=== PATIENT | female | born 1940 | race Caucasian/White ===

== ENCOUNTER 2017-08-25 12:53 | Emergency (ER) | payer OTHER ==
[2017-08-25 13:03] VITALS: BMI 23.4
[2017-08-25] MEDS ORDERED: CATAPRES TAB 0.1 MG PO ONE (13:19)
[2017-08-25] MEDS ORDERED: CATAPRES TAB 0.1 MG ONE (13:19)
--- NOTE | 2017-08-25 13:25 | DR.GENAD ---
HPI - PCP Primary Care Physician: TOMAS - Complaint/Symptoms Chief Complaint Doctors Comments: She had a pre-syncopal episode at about 0945 hrs. today while in [place]. She denies preceeding palpitations or SOB, She had no chest pain but was diaphoretic. Her most recent visit with her embedded developer was under 2 weeks and and her Metoprolol was changed to Coreg. Chief Complaint:: PT WAS AT [employer] AT 945 THIS AM AND HAD A SYNCOPLE EPISODE. DECIDED TO COME TO THE ER TO GET SEEN - Nurses notes reviewed Nurses Notes Review: Yes - Source History Provided: Patient - Mode of Arrival Mode of Arrival: Ambulatory - Timing Onset of Chief Complaint: 08/25/17 PMH - PMH Past Medical History: Yes Past Medical History: Hypertension Past Medical History Comment: Hypothyroidism Past Surgical History: Yes Surgical History: Appendectomy, Ortho Surgery, Thyroidectomy, Tonsillectomy - Family History History of Family Medical Conditions: No - Social History Does patient currently use any type of tobacco product: No Have you used tobacco products in the last 12 months: No Type of Tobacco Use: None Does any household member use tobacco: No Alcohol Use: None Do you use any recreational Drugs:: No Lives With: Family Lives Where: Home - infectious screening In the last 2 months have you had wt loss of >10#?: NO Have you had fever, night sweats or hemotysis?: No Have you traveled outside the country in the last 6 months?: No Isolation: Standard ROS - Review of Systems Constitutional: No Symptoms Reported Eyes: No Symptoms Reported ENTM: No Symptoms Reported Respiratoy: No Symptoms Reported Cardiovascular: No Symptoms Reported Gastrointestinal/Abdominal: No Symptoms Reported Genitourinary: No Symptoms Reported Neurological: Other (near syncope this a.m.) Musculoskeletal: No Symptoms Reported Integumentary: No Symptoms Reported Hematologic/Lymphatic: No Symptoms Reported Endocrine: No Symptoms Reported Psychiatric: No Symptoms Reported All Other Systems: Reviewed and Negative PE - Vital Signs Vitals: Temperature 98.7 F Pulse Rate [Apical] 52 Pulse Rate 62 Respiratory Rate 13 Blood Pressure [Left Arm] 147/65 Blood Pressure 226/87 O2 Sat by Pulse Oximetry 98 - General Limitations: No Limitations General Appearance: Alert, In No Apparent Distress - Head Head Exam: Normal Inspection - Eyes Eye exam: Normal Appearance, PERRL, EOMI - ENT ENT Exam: Normal Exam - Neck Neck Exam: Normal Inspection, Full ROM, Trachea Midline - Chest Chest Inspection: Normal Inspection, Symmetric Chest Wall Rise - Respiratory Respiratory Exam: Normal Lung Sounds Bilat - Cardiovascular Cardiovascular Exam: Bradycardia - Abdominal Exam Abdominal Exam: Normal Inspection, Normal Bowel Sounds, Soft - Extremities Extremities Exam: Normal Inspection, Full ROM - Back Back Exam: Normal Inspection - Neurologic Neurological Exam: Alert, Oriented X3, CN II-XII Intact - Psychiatric Psychiatric Exam: Normal Affect - Skin Skin Exam: Warm, Dry, Intact, Normal Color ROR - Labs Reviewed Result Diagrams: 08/25/17 13:30 08/25/17 13:30 Laboratory: WBC 6.3 X10^3/uL (3.6-10.0) 08/25/17 13:30 RBC 3.70 X10^6/uL (3.5-5.4) 08/25/17 13:30 Hgb 11.9 g/dL (12.0-16.0) L 08/25/17 13:30 Hct 34.5 % (36.0-47.0) L 08/25/17 13:30 MCV 93.2 fL (80.0-100.0) 08/25/17 13:30 MCH 32.1 pg (27.0-34.0) 08/25/17 13:30 MCHC 34.5 g/dL (33.0-35.0) 08/25/17 13:30 RDW 13.5 % (11.6-16.5) 08/25/17 13:30 Plt Count 155 X10^3/uL (150.0-450.0) 08/25/17 13:30 MPV 9.1 fL (7.4-11.0) 08/25/17 13:30 Neut % 71.8 % (42.0-75.0) 08/25/17 13:30 Lymph % 17.1 % (21.0-51.0) L 08/25/17 13:30 [place] % 9.7 % (0.0-13.0) 08/25/17 13:30 Eos % 0.8 % (0.9-2.9) L 08/25/17 13:30 Baso % 0.6 % (0.2-1.0) 08/25/17 13:30 Neut # 4.5 x10^3/uL (2.2-4.8) 08/25/17 13:30 Lymph # 1.1 X10^3/uL (1.3-2.9) L 08/25/17 13:30 [place] # 0.6 x10^3/uL (0.3-0.8) 08/25/17 13:30 Eos # 0.1 x10^3/uL (0.0-0.2) 08/25/17 13:30 Baso # 0.0 X10^3/uL (0.0-0.1) 08/25/17 13:30 Absolute Nucleated RBC 0.0 /100WBC 08/25/17 13:30 Sodium 135 mmol/L (136-145) L 08/25/17 13:30 Corrected Sodium TNP 08/25/17 13:30 Potassium 4.9 mmol/L (3.5-5.1) 08/25/17 13:30 Chloride 102 mmol/L (98-107) 08/25/17 13:30 Carbon Dioxide 23.3 mmol/L (21-32) 08/25/17 13:30 BUN 28 mg/dL (7-18) H 08/25/17 13:30 Creatinine 0.85 mg/dL (0.55-1.02) 08/25/17 13:30 Est GFR (MDRD) Af Amer > 60 (>60) 08/25/17 13:30 Est GFR (MDRD) Non-Af > 60 (>60) 08/25/17 13:30 Glucose 103 mg/dL (65-99) H 08/25/17 13:30 Calcium 9.7 mg/dL (8.5-10.1) 08/25/17 13:30 Corrected Calcium TNP 08/25/17 13:30 Total Bilirubin 0.60 mg/dL (0.2-1.0) 08/25/17 13:30 AST 30 Units/L (15-37) 08/25/17 13:30 ALT 35 Units/L (12-78) 08/25/17 13:30 Alkaline Phosphatase 49 Units/L (46-116) 08/25/17 13:30 Creatine Kinase 78 Units/L (26-192) 08/25/17 13:30 CK-MB (CK-2) 2.3 ng/mL (0-4.0) 08/25/17 13:30 CK/CKMB % Calc 3.0 % (<4) 08/25/17 13:30 Troponin I < 0.02 ng/mL (0-1.5) 08/25/17 13:30 Total Protein 7.1 g/dL (6.4-8.2) 08/25/17 13:30 Albumin 4.0 g/dL (3.4-5.0) 08/25/17 13:30 Globulin 3.1 g/dL (2.5-4.5) 08/25/17 13:30 Albumin/Globulin Ratio 1.3 Ratio (1.1-2.1) 08/25/17 13:30 TSH 3rd Generation 1.884 uIU/mL (0.358-3.74) 08/25/17 13:30 - XRAY XRAY Interpreted by: Radiologist (NAD) - Diagnosis Discharge Problem: Near syncope - Discharge Plan Disposition: 01 HOME, SELF-CARE Condition: Stable - Follow ups/Referrals Follow ups/Referrals: Miki Amaral [Primary Care Provider] - 3 days - Instructions
[2017-08-25 13:40] LABS: BASOPHILS % (AUTO) 0.6 % (0.2-1.0); EOSINOPHILS # (AUTO) 0.1 x10^3/uL (0.0-0.2); EOSINOPHILS % (AUTO) 0.8 % (0.9-2.9); HEMATOCRIT 34.5 % (36.0-47.0); HEMOGLOBIN 11.9 g/dL (12.0-16.0); LYMPHOCYTES # (AUTO) 1.1 X10^3/uL (1.3-2.9); LYMPHOCYTES % (AUTO) 17.1 % (21.0-51.0); MEAN CORPUSCULAR HEMOGLOBIN 32.1 pg (27.0-34.0); MEAN CORPUSCULAR HGB CONC 34.5 g/dL (33.0-35.0); MEAN CORPUSCULAR VOLUME 93.2 fL (80.0-100.0); MEAN PLATELET VOLUME 9.1 fL (7.4-11.0); MONOCYTES # (AUTO) 0.6 x10^3/uL (0.3-0.8); MONOCYTES % (AUTO) 9.7 % (0.0-13.0); NEUTROPHILS # (AUTO) 4.5 x10^3/uL (2.2-4.8); NEUTROPHILS % (AUTO) 71.8 % (42.0-75.0); PLATELET COUNT 155 X10^3/uL (150.0-450.0); RED CELL DISTRIBUTION WIDTH 13.5 % (11.6-16.5); WHITE BLOOD COUNT 6.3 X10^3/uL (3.6-10.0)
[2017-08-25 13:55] LABS: BLOOD UREA NITROGEN 28 mg/dL (7-18); CALCIUM 9.7 mg/dL (8.5-10.1); CARBON DIOXIDE 23.3 mmol/L (21-32); CHLORIDE 102 mmol/L (98-107); CREATININE 0.85 mg/dL (0.55-1.02); SODIUM 135 mmol/L (136-145); TROPONIN I < 0.02 ng/mL (0-1.5); eGFR BLACK RACES > 60 (>60); eGFR NON BLACK RACES > 60 (>60)
--- NOTE | 2017-08-25 13:59 | RAD ---
History: Syncopal episode this morning Study: Portable AP chest Comparison: None Findings: The lungs are clear and the heart and mediastinum are unremarkable. No bony abnormality is suggested. Impression: No active cardiopulmonary disease Reported By:
[2017-08-25 14:00] LABS: ALANINE AMINOTRANSFERASE 35 Units/L (12-78); ALKALINE PHOSPHATASE 49 Units/L (46-116); ASPARTATE AMINO TRANSFERASE 30 Units/L (15-37); CREATINE KINASE 78 Units/L (26-192); CREATINE KINASE MB 2.3 ng/mL (0-4.0); TOTAL PROTEIN 7.1 g/dL (6.4-8.2); TSH (3RD GENERATION) 1.884 uIU/mL (0.358-3.74)
[2017-08-25 14:05] VITALS: BP 147/65
== END 2017-08-25 14:38 | disposition home or self-care (01) ==
LOC: ER 13:14
DX: R55 Syncope and collapse (principal)
CPT/HCPCS: 36415; 71010; 80053; 82550; 82553; 84443; 84484; 85025; 93005; 93010; 99282; 99283